=== PATIENT | male | born 2005 | race Caucasian/White ===

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

== ENCOUNTER 2025-03-04 19:37 | Emergency (ER) | payer BC ==
[~2025-03-04] VITALS: Ht 172.7 cm; Wt 86.2 kg
[2025-03-04 19:51] VITALS: BP 140/97
[2025-03-04] MEDS ORDERED: PENVK500 PO (19:57)
[2025-03-04] MEDS ORDERED: IBU600 M1 PO (19:57)
[2025-03-04] MEDS ORDERED: FAMO20 PO (20:03)
== END 2025-03-04 20:04 | disposition home or self-care (01) ==
LOC: ER 19:37
DX: K08.89 Other specified disorders of teeth and supporting structures (principal)
CPT/HCPCS: 99282; A9270